=== PATIENT | male | born 1970 | race Caucasian/White ===

== ENCOUNTER → 2023-12-19 12:46 | Outpatient (REF) | payer OTHER, SELFPAY ==
--- NOTE | 2023-12-19 14:18 | CARDSERVDEF ---
Echocardiogram with Definity completed after protocol screening completed. Allergies verified. Pt here for Stress Echo
Patent IV site: __Right hand metacarpal 22 G PC___
IV site flushed with 0.9% NaCl pre and post administration.
Diluted bolus method utilized to enhance visualization of ventricular lay.
Total volume given: __6__ mL
Patient tolerated all procedures well without complications.
Heplock D/C ed at 1357, site clear, no redness, no edema. Pressure held, no bleeding, 2x2 applied and taped. Pt offers no complaints.
== END ==
LOC: RCS 12:46
PROVIDERS: ATTENDING PHYSICIAN Internal Medicine Cardiovascular Disease; FAMILY PHYSICIAN Family Medicine
DX: I25.10 Atherosclerotic heart disease of native coronary artery without angina pectoris (principal); I25.5 Ischemic cardiomyopathy; I73.9 Peripheral vascular disease, unspecified; Z95.5 Presence of coronary angioplasty implant and graft
CPT/HCPCS: 93017; 93350; Q9957